=== PATIENT | male | born 1950 | race Caucasian/White ===

== ENCOUNTER → 2016-04-16 | Outpatient (REF) | payer OTHER ==
[~2016-04-16] MED LIST: ATOR1TAB19 PO
[2016-04-16 18:32] LABS: FOLATE > 24.0 NG/ML
[2016-04-16 19:22] LABS: VITAMIN B12 LEVEL 493 PG/ML
== END ==
LOC: M LAB REF 16:30
PROVIDERS: ATTEND Nurse Practitioner Family
DX: R41.82 Altered mental status, unspecified (principal)

== ENCOUNTER → 2016-04-22 | Outpatient (CLI) | payer OTHER | LOC: M SMT 15:49 | PROVIDERS: ATTEND Nurse Practitioner Family | DX: N40.0 Benign prostatic hyperplasia without lower urinary tract symptoms (principal) ==

== ENCOUNTER → 2016-06-13 | Outpatient (CLI) | payer OTHER ==
--- NOTE | 2016-06-13 19:07 | REP ---
Left femur five views, AP and lateral projections: There are no comparisons. Left femur five views : There is no fracture or dislocation. Mineralization and joint spaces are normal. There are no calcifications or foreign bodies. Impression: Negative left femur . Signed by Facundo Tanner MD 06/13/2016 06:58 P
== END ==
LOC: M LRY 18:23
PROVIDERS: ATTEND Nurse Practitioner Family
DX: M25.552 Pain in left hip (principal)

== ENCOUNTER → 2016-06-13 | Outpatient (REF) | payer OTHER ==
[2016-06-14 12:01] LABS: ALBUMIN 4.1 GM/DL (3.2-5.2); ALBUMIN/GLOBULIN RATIO 1.37 (1.00-1.93); ALKALINE PHOSPHATASE 45 U/L (45-117); ALT/SGPT 27 U/L (12-78); ANION GAP 6 MEQ/L (8-16); AST/SGOT 19 U/L (15-37); BILIRUBIN,TOTAL 0.5 MG/DL (0.2-1.0); BLOOD UREA NITROGEN 21 MG/DL (7-18); CALCIUM LEVEL 9.2 MG/DL (8.8-10.2); CARBON DIOXIDE LEVEL 29 MEQ/L (21-32); CHLORIDE LEVEL 105 MEQ/L (98-107); CREATININE FOR GFR 1.03 MG/DL (0.70-1.30); GLOMERULAR FILTRATION RATE > 60.0 (>49); GLUCOSE, FASTING 86 MG/DL (80-110); POTASSIUM SERUM 4.4 MEQ/L (3.5-5.1); SODIUM LEVEL 140 MEQ/L (136-145); TOTAL PROTEIN 7.1 GM/DL (6.4-8.2)
[2016-06-14 12:11] LABS: MEAN CORPUSCULAR HEMOGLOBIN 29.9 pg (27.0-33.0); MEAN CORPUSCULAR HGB CONC 33.8 g/dl (32.0-36.5); MEAN CORPUSCULAR VOLUME 88.2 fl (80.0-96.0); PLATELET COUNT, AUTOMATED 224 k/mm3 (150-450); RED CELL DISTRIBUTION WIDTH 13.1 % (11.5-14.5); WHITE BLOOD COUNT 7.4 K/mm3 (4.0-10.0)
[2016-06-14 12:36] LABS: BASOPHILS 2 % (0-4); EOSINOPHILS 1 % (0-5)
[2016-06-14 12:38] LABS: ANISOCYTOSIS 1+; OVALOCYTES 1+
[2016-06-14 12:39] LABS: POIKILOCYTOSIS 1+
== END ==
LOC: M SFHCLERA 19:34
PROVIDERS: ATTEND Nurse Practitioner Family
DX: S70.12XA Contusion of left thigh, initial encounter (principal); W55.82XA Struck by other mammals, initial encounter; Y92.9 Unspecified place or not applicable

== ENCOUNTER → 2016-07-25 | Outpatient (CLI) | payer OTHER ==
[~2016-07-25] VITALS: Ht 172.7 cm; Wt 73.5 kg
[~2016-07-25] MED LIST changes: +FLOM5CAP PO; +LIDOCAINE 2% INJ 100 MG/5 ML SDV (FOR ANES.) As Ordered ONE; +NS 1,000 ML IV SCH; +PRAV10TA PO; +PROPOFOL 200 MG/20 ML VIAL As Ordered ONE
--- NOTE | 2016-07-25 13:02 | ROOR ---
Patient Name: Facundo Maxwell Procedure Date: 07/25/2016 12:49 PM Date of : 1950 Age: 65 Room: [facility] Gender: Male Note Status: Finalized Procedure: Upper GI endoscopy Indications: Weight loss Providers: Luis JO MD Referring MD: Abdulkadir APONTE NP Requesting Provider: Medicines: Monitored Anesthesia Care Complications: No immediate complications. Procedure: Pre-Anesthesia Assessment: - The heart rate, respiratory rate, oxygen saturations, blood pressure, adequacy of pulmonary ventilation, and response to care were monitored throughout the procedure. The Endoscope was introduced through the mouth, and advanced to the second part of duodenum. The upper GI endoscopy was accomplished without difficulty. The patient tolerated the procedure well. Findings: The esophagus was normal. The stomach was normal. The examined duodenum was normal. Impression: - Normal esophagus. - Normal stomach. - Normal examined duodenum. - No specimens collected. Recommendation: - Observe patient's clinical course. Luis Jo MD Luis JO MD 07/25/2016 1:01:50 PM This report has been signed electronically. Number of Addenda: 0 Note Initiated On: 07/25/2016 12:49 PM Estimated Blood Loss: Estimated blood loss: none.
--- NOTE | 2016-07-25 13:18 | ROOR ---
Patient Name: Facundo Maxwell Procedure Date: 07/25/2016 12:50 PM Date of : 1950 Age: 65 Room: [facility] Gender: Male Note Status: Finalized Procedure: Colonoscopy Indications: Weight loss Providers: Luis JO MD Referring MD: Abdulkadir APONTE NP Requesting Provider: Medicines: Monitored Anesthesia Care Complications: No immediate complications. Procedure: Pre-Anesthesia Assessment: - The heart rate, respiratory rate, oxygen saturations, blood pressure, adequacy of pulmonary ventilation, and response to care were monitored throughout the procedure. The Colonoscope was introduced through the anus and advanced to 5 cm into the ileum. The colonoscopy was performed without difficulty. The patient tolerated the procedure well. The quality of the bowel preparation was good. Findings: The perianal and digital rectal examinations were normal. (Exam: Complete, Prep: Good or Excellent.) A 4 mm polyp was found in the ascending colon. The polyp was sessile. The polyp was removed with a cold snare. Resection and retrieval were complete. Internal hemorrhoids were found during retroflexion. The hemorrhoids were medium-sized. The exam was otherwise without abnormality on direct and retroflexion views. Impression: - One 4 mm polyp in the ascending colon, removed with a cold snare. Resected and retrieved. - Internal hemorrhoids. - The Colon is otherwise normal on direct and retroflexion views. Recommendation: - Telephone endoscopist for pathology results in 2 weeks. - If the pathology report reveals adenomatous tissue, then repeat the colonoscopy for surveillance in 5 years. Luis Jo MD Luis JO MD 07/25/2016 1:18:02 PM This report has been signed electronically. Number of Addenda: 0 Note Initiated On: 07/25/2016 12:50 PM Estimated Blood Loss: Estimated blood loss: none.
[2016-07-25 14:00] VITALS: BP 125/67
== END | disposition home or self-care (01) ==
LOC: M OPP 11:38
PROVIDERS: ATTEND Internal Medicine Gastroenterology
DX: R63.4 Abnormal weight loss (principal); D12.2 Benign neoplasm of ascending colon; K64.8 Other hemorrhoids; E78.5 Hyperlipidemia, unspecified; R51 Headache; R06.83 Snoring; N40.0 Benign prostatic hyperplasia without lower urinary tract symptoms; Z87.891 Personal history of nicotine dependence; Z88.7 Allergy status to serum and vaccine; Z79.899 Other long term (current) drug therapy; Z89.022 Acquired absence of left finger(s)

== ENCOUNTER → 2017-04-01 | Outpatient (CLI) | payer OTHER | LOC: M WUC 11:19 | DX: R53.83 Other fatigue (principal); R63.4 Abnormal weight loss | CPT/HCPCS: 71046 ==

== ENCOUNTER → 2017-04-22 | Outpatient (REF) | payer OTHER | LOC: M SFHCLERA 15:04 | DX: Z20.828 Contact with and (suspected) exposure to other viral communicable diseases (principal) ==

== ENCOUNTER → 2017-05-05 | Outpatient (REF) | payer OTHER ==
[2017-05-05 20:00] LABS: VITAMIN B12 LEVEL 670 PG/ML
[2017-05-05 20:01] LABS: FOLATE > 24.0 NG/ML
== END ==
LOC: M LAB REF 19:07
DX: R41.82 Altered mental status, unspecified (principal)

== ENCOUNTER → 2017-05-05 | Outpatient (CLI) | payer OTHER | LOC: M WUC 12:17 | DX: R41.82 Altered mental status, unspecified (principal) ==

== ENCOUNTER → 2019-05-01 | Outpatient (CLI) | payer MEDICARE, OTHER ==
[~2019-05-01] MED LIST changes: +FLOM0.4C39 PO; -FLOM5CAP PO; -LIDOCAINE 2% INJ 100 MG/5 ML SDV (FOR ANES.) As Ordered ONE; -NS 1,000 ML IV SCH; -PRAV10TA PO; +PRAV10TA4 PO; -PROPOFOL 200 MG/20 ML VIAL As Ordered ONE
--- NOTE | 2019-05-02 08:56 | REP ---
PA and lateral chest: Comparisons are: 05/05/2017 and 04/01/2017. There are no infiltrates or pleural effusions. There is a 6 mm nodule inferiorly in the right lung. I would recommend CT for confirmation. The lung gaspar otherwise clear. Cardiac size is normal. The nona, mediastinum, skeletal structures are unremarkable. Impression: There are no acute cardiopulmonary findings. There is a 6 ml lung nodule inferiorly in the right lung. I would recommend follow-up CT for confirmation. Electronically Signed by Facundo Tanner MD 05/02/2019 08:47 A
== END ==
LOC: M LRY 17:23
PROVIDERS: ATTEND Nurse Practitioner Family
DX: R05 Cough (principal)
CPT/HCPCS: 71046; 87804; G0463

== ENCOUNTER → 2019-05-10 | Outpatient (CLI) | payer MEDICARE ==
--- NOTE | 2019-05-10 09:26 | REPVR ---
PROCEDURE INFORMATION: Exam: CT Chest Without Contrast Exam date and time: 05/10/19 (8:53am) Age: 68 years old Clinical indication: Pulmonary nodule TECHNIQUE: Imaging protocol: Computed tomography of the chest without contrast. 3D rendering: MIP and/or 3D reconstructed images were created by the technologist. Radiation optimization: All CT scans at this facility use at least one of these dose optimization techniques: automated exposure control; mA and/or kV adjustment per patient size (includes targeted exams where dose is matched to clinical indication); or iterative reconstruction. COMPARISON: Chest films of 05/01/19 FINDINGS: Lungs: Indeterminate irregular right lung parenchymal opacity (16 x 11 mm size), anterior and inferior to the right hilum (Ser. 201 - Image #67). A few small upper lobe bullae. Pleural space: Unremarkable. No pneumothorax. No pleural effusions. Heart: Unremarkable. No cardiomegaly. No pericardial effusion. Aorta: Unremarkable. No aortic aneurysm. Lymph nodes: Unremarkable. No enlarged lymph nodes. Bones/joints: Unremarkable. No acute fracture. Soft tissues: Unremarkable. IMPRESSION: Indeterminate irregular right lung opacity (16 x 11 mm size), anterior and inferior to the right hilum -- possible focal pneumonia; possible irregular lung mass. Follow-up imaging (eg, over the next 3 weeks) is suggested to ensure clearing of this opacity. Comparison with prior CT scans is also suggested, if available. Electronically signed by: Brittani Santos On 05/10/2019 09:26:01 AM
== END ==
LOC: M RAD 08:32
PROVIDERS: ATTEND Registered Nurse
DX: R91.1 Solitary pulmonary nodule (principal)

== ENCOUNTER → 2019-05-31 | Outpatient (CLI) | payer MEDICARE ==
--- NOTE | 2019-05-31 10:46 | REP ---
Clinical: Follow-up pulmonary nodule. Technique: Axial noncontrast images from the thoracic inlet to the upper abdomen with coronal and sagittal re-formations. Comparison: 05/10/2019. Findings: There is a small irregular focus of nodular opacity in the right middle lobe with peripheral linear scarring extending towards the lateral right lower lung zone (images 70 - 80). Mild biapical scarring and subtle bullous changes are also identified and these findings likely represent chronic changes. No further consolidation, significant nodule, or mass lesion and no pleural effusion. No pneumothorax. Tracheobronchial tree is patent. No significant adenopathy. The mediastinum demonstrates relatively normal thoracic aorta, pulmonary vasculature and heart/pericardium. Surrounding musculoskeletal structures are intact. Impression: Findings described above which may represent those identified on recent x-ray most likely represent chronic changes. However, no prior examinations are available for comparison. Initial short-term 3-6 month follow-up examination may be warranted unless prior examinations are made available for comparison. Electronically Signed by Demario Serrano MD 05/31/2019 10:38 A
== END ==
LOC: M RAD 10:11
PROVIDERS: ATTEND Registered Nurse
DX: R91.8 Other nonspecific abnormal finding of lung field (principal)

== ENCOUNTER → 2019-08-25 | Outpatient (CLI) | payer MEDICARE ==
--- NOTE | 2019-08-25 16:16 | REP ---
REASON FOR EXAM: Followup. COMPARISON: 05/31/2019 The mediastinum and pulmonary nona are unchanged. There is no mass or adenopathy. The imaged upper abdomen and imaged osseous structures are unchanged. Evaluation of the lung gaspar shows significant improvement in an asymmetric nodule seen in the inferior right middle lobe. A subtle degree of fissural tenting persists. Chronic biapical pleural blebs with mild pleuroparenchymal scarring, status quo. No new abnormal nodules, masses, or opacities have developed. There is stable cylindrical bronchiectasis. IMPRESSION: 1. The asymmetric nodule seen previously in the right middle lobe has significantly improved and is now barely perceptible. 2. Other stable chronic changes, as described above. Electronically Signed by Casimiro Baird DO 08/25/2019 05:06 P
== END ==
LOC: M RAD 13:00
PROVIDERS: ATTEND Internal Medicine Pulmonary Disease
DX: R91.1 Solitary pulmonary nodule (principal)